=== PATIENT | female | born 1990 | race Caucasian/White ===

== ENCOUNTER 2018-02-23 09:40 | Outpatient (RCR) | payer OTHER | END 2018-05-24 | disposition home or self-care (01) | LOC: WSOH | DX: S00.33XA Contusion of nose, initial encounter (principal); W20.8XXA Other cause of strike by thrown, projected or falling object, initial encounter; Y92.219 Unspecified school as the place of occurrence of the external cause; Y99.0 Civilian activity done for income or pay; Z79.899 Other long term (current) drug therapy ==

== ENCOUNTER → 2020-12-27 | Outpatient (CLI) | payer BC | LOC: COL.RAD 13:07 | DX: R22.31 Localized swelling, mass and lump, right upper limb (principal) ==